=== PATIENT | male | born 2005 | race Caucasian/White ===

== ENCOUNTER 2023-10-05 09:42 | Emergency (ER) | payer MEDICAID ==
[~2023-10-05] VITALS: Ht 182.9 cm; Wt 83.4 kg
[2023-10-05 09:47] VITALS: BP 149/104; PULSE 65; RESP 16; TEMP 98; O2SAT 96
--- NOTE | 2023-10-05 09:49 | NUR ---
MSE COMPLETED BY VANESA BARRAZA, SHE DOES NOT WANT AN XRAY AT THIS TIME
== END 2023-10-05 13:47 | disposition home or self-care (01) ==
LOC: ER 09:42
DX: S86.912A Strain of unspecified muscle(s) and tendon(s) at lower leg level, left leg, initial encounter (principal); X58.XXXA Exposure to other specified factors, initial encounter; Y93.89 Activity, other specified; Y92.89 Other specified places as the place of occurrence of the external cause; Y99.8 Other external cause status
CPT/HCPCS: 99282